=== PATIENT | male | born 2000 | race Caucasian/White ===

== ENCOUNTER 2022-10-23 02:34 | Emergency (ER) | payer BC ==
[2022-10-23 03:06] LABS: Hemoglobin 15.7 g/dL (13.5-17.5); MDiff Complete? YES; Mean Corpuscular HGB CONC 34.1 g/dL (32.0-36.0); Mean Corpuscular Hemoglobin 30.1 pg (27.0-33.0); Mean Corpuscular Volume 88.5 fl (81.2-95.1); Mean Platelet Volume 10.3 fl (7.4-10.4); Platelet Count 194 10x3/uL (150-450); RBC Distribution Width 13.2 % (11.5-14.5); Red Blood Cell (RBC) Count 5.21 10x6/uL (4.32-5.72); White Blood Cell (WBC) Count 6.9 10x3/uL (3.5-10.5)
[2022-10-23 03:48] LABS: Potassium 5.5 mmol/L (3.5-5.1)
[2022-10-23 03:49] LABS: ALT (SGPT) 25 U/L (8-55); AST (SGOT) 31 U/L (5-34); Alkaline Phosphatase 108 U/L (40-110); Anion Gap 15 mmol/L (10-20); BUN (Urea Nitrogen) 18 mg/dL (8.9-20.6); Bilirubin, Total 0.3 mg/dL (0.2-1.2); CK (CPK) 86 U/L (30-200); Calc. Creatinine Clearance 0 mL/min (70-130); Calcium 8.9 mg/dL (7.8-10.44); Carbon Dioxide 22 mmol/L (22-29); Chloride 107 mmol/L (98-107); Estimated GFR 121; Globulin 3.5 g/dL (2.4-3.5); Glucose 111 mg/dL (70-105); Protein, Total 7.5 g/dL (6.0-8.3); Sodium 138 mmol/L (136-145)
[2022-10-23 04:03] LABS: Lipase 3429 U/L (8-78)
[2022-10-23 04:17] LABS: Band 1 % (5-11); Eosinophils 7 % (0-10); Lymphocytes 53 % (21-51); Monocytes 8 % (0-10); Neutrophil 31 % (42-75)
[2022-10-23 04:19] LABS: Bilirubin Neg (Negative); Blood, Urine Negative (Negative); Glucose, Urine (Dipstick) Normal (Negative); Ketone, Urine Negative (Negative); Leukocyte Negative (Negative); Nitrite Negative (Negative); Protein, Urine (Dipstick) Negative (Neg-Trace); Specific Gravity, Urine 1.025 (1.005-1.030); Urobilinogen Normal mg/dL (Less than 2)
[2022-10-23 04:19] LABS: Platelet Morphology Comment Appears Adequate; RBC Morphology Normal
[2022-10-23 04:35] LABS: Clarity Clear (Clear)
== END 2022-10-23 05:54 | disposition home or self-care (01) ==
LOC: CSHERS 02:34
DX: K85.90 Acute pancreatitis without necrosis or infection, unspecified (principal); K52.9 Noninfective gastroenteritis and colitis, unspecified; E87.5 Hyperkalemia
CPT/HCPCS: 80053; 81003; 82550; 83605; 83690; 85025; 99284